=== PATIENT | female | born 1955 | race Caucasian/White ===

== ENCOUNTER 2017-10-02 09:56 | Emergency (ER) | payer MEDICAID, MEDICARE ==
[2017-10-02 09:49] VITALS: BP 126/41
--- NOTE | 2017-10-02 09:56 | EDM.PDOC ---
ED HPI GENERAL MEDICAL PROBLEM - General Stated Complaint: FX ANKLE. IN BY AMB Time Seen by Provider: 10/02/17 09:45 Source of Information: Reports: Patient History Limitations: Reports: No Limitations - History of Present Illness INITIAL COMMENTS - FREE TEXT/NARRATIVE: This 62 yo female patient was brought to the ED by [facility] due to right ankle pain. The patient reports she had a near syncope episode last night at about 2230. The patient reports she has been on the ground since last night. The patient reports that syncope is a side effect of some of her medications. The patient continues to have pain in her right ankle. The patient has an abrasion to her right medial ankle. Onset: Sudden Onset Date: 10/01/17 Onset Time: 22:30 Duration: Constant Location: Reports: Lower Extremity, Right Quality: Reports: Ache, Dull Severity: Moderate Improves with: Reports: Rest Worsens with: Reports: Movement Context: Reports: Other Associated Symptoms: Reports: No Other Symptoms Right Ankle Pain Score (Numeric/FACES): 5 - Related Data Allergies Allergy/AdvReac Type Severity Reaction Status Date / Time cefdinir [From Omnicef] Allergy UNKNOWN Verified 08/22/16 09:42 Home Meds: Home Meds metFORMIN [Glucophage] 1,000 mg PO BID 12/02/13 [History] Calcium Carb & Citrate/Vit D3 [Calcium + D3 ER Tablet] 600 mg PO BID 12/03/14 [ History] Cholecalciferol (Vitamin D3) [Vitamin D3] 2,000 unit PO DAILY 12/03/14 [History] Escitalopram [Lexapro] 20 mg PO DAILY 12/03/14 [History] Furosemide 20 mg PO DAILY 12/03/14 [History] Insulin Aspart [NovoLOG] 4 units SQ ASDIRECTED 12/03/14 [History] Aspirin [Halfprin] 81 mg PO DAILY 08/22/16 [History] Levothyroxine 125 mcg PO DAILY 08/22/16 [History] Pioglitazone [Actos] 30 mg PO DAILY 08/22/16 [History] buPROPion HCl [Wellbutrin Xl] 300 mg PO DAILY 08/22/16 [History] traZODone 50 mg PO BEDTIME 08/22/16 [History] Clopidogrel [Plavix] 75 mg PO DAILY 08/29/16 [History] Insulin Glarg,Human.Rec.Analog [Lantus Solostar] 15 unit SQ BEDTIME 08/29/16 [ History] Lisinopril [Prinivil] 5 mg PO DAILY 08/29/16 [History] Metoprolol Succinate [Toprol XL] 12.5 mg PO DAILY 08/29/16 [History] Pantoprazole Sodium [Protonix] 40 mg PO DAILY 08/29/16 [History] Vit A/C/E AC/Znox/Cupric Oxide [Eye Vitamin-Minerals Tablet] 1 each PO DAILY 06/05 [History] atorvaSTATin [Lipitor] 40 mg PO BEDTIME 08/29/16 [History] Past Medical History Cardiovascular History: Reports: High Cholesterol, Hypertension Other Cardiovascular History: history of syncope Other Respiratory History: "right zay diminished capacity" Gastrointestinal History: Reports: Pancreatitis, Other (See Below) Other Gastrointestinal History: history of pancreatitis [employer] History: Reports: Musculoskeletal History: Reports: Fibromyalgia Psychiatric History: Reports: Anxiety, Depression, Other (See Below) Other Psychiatric History: severe depression Endocrine/Metabolic History: Reports: Diabetes, Type I, Hypothyroidism - Infectious Disease History Infectious Disease History: Reports: Chicken Pox - Past Surgical History HEENT Surgical History: Reports: Other (See Below) Cardiovascular Surgical History: Reports: Coronary Artery Stent GI Surgical History: Reports: Cholecystectomy, Other (See Below) Oncologic Surgical History: Reports: Biopsy of Breast Social & Family History - Family History Family Medical History: Noncontributory Cardiac: Reports: Heart Failure - Tobacco Use Smoking Status *Q: Never Smoker Second Hand Smoke Exposure: No - Caffeine Use Caffeine Use: Reports: None - Alcohol Use Days Per Week of Alcohol Use: 0 - Recreational Drug Use Recreational Drug Use: No ED ROS GENERAL - Review of Systems Review Of Systems: ROS reveals no pertinent complaints other than HPI. - Physical Exam Exam: Not Obtained Exam Limited By: No Limitations General Appearance: Alert, WD/WN, Moderate Distress, Obese Ears: Normal External Exam, Normal Canal, Hearing Grossly Normal, Normal TMs Nose: Normal Inspection, Normal Mucosa, No Blood Throat/Mouth: Normal Inspection, Normal Lips, Normal Teeth, Normal Gums, Normal Oropharynx, Normal Voice, No Airway Compromise Head Exam: Atraumatic, Normocephalic Neck: Normal Inspection, Supple, Non-Tender, Full Range of Motion Respiratory/Chest: No Respiratory Distress, Lungs Clear, Normal Breath Sounds, No Accessory Muscle Use, Chest Non-Tender Cardiovascular: Normal Peripheral Pulses, Regular Rate, Rhythm, No Edema, No Gallop, No JVD, No Murmur, No Rub GI/Abdominal: Normal Bowel Sounds, Soft, Non-Tender, No Organomegaly, No Distention, No Abnormal Bruit, No Mass (Female) Exam: Deferred Rectal (Female) Exam: Deferred Neuro Exam (Abbreviated): Alert, Oriented, CN II-XII Intact, Normal Cognition, Normal Gait, Normal Reflexes, No Motor/Sensory Deficits Back Exam: Normal Inspection, Full Range of Motion, NT Extremities: Other (erythema and abrasion to the right medial ankle with no evidence of disruption of the skin surface. ) Psychiatric: Normal Affect, Normal Mood Skin Exam: Warm, Dry, No Rash EKG INTERPRETATION EKG Date: 10/02/17 Rhythm: NSR [place]: Normal P-Wave: Present QRS: Normal ST-T: Normal QT: Normal Course - Vital Signs Last Recorded V/S: Last Vital Signs Temp 37.3 C 10/02/17 09:39 Pulse 76 10/02/17 09:39 Resp 18 10/02/17 09:39 BP 126/41 L 10/02/17 09:39 Pulse Ox 93 L 10/02/17 09:39 - Orders/Labs/Meds Orders: Active Orders 24 hr Category Date Time Status EKG Documentation Completion [RC] URGENT Care 10/02/17 09:42 Ordered Tibia Fibula Rt [CR] Urgent Exams 10/02/17 09:43 Ordered CBC WITH AUTO DIFF [HEME] Urgent Lab 10/02/17 09:38 Ordered COMPREHENSIVE METABOLIC PN,CMP [CHEM] Urgent Lab 10/02/17 09:38 Ordered TROPONIN I [CHEM] Urgent Lab 10/02/17 09:42 Ordered Departure - Departure Time of Disposition: 11:16 Disposition: DC/Tfer to Acute Hospital 02 Condition: Fair Clinical Impression: Closed fracture of right tibia and fibula Qualifiers: Encounter type: initial encounter Qualified Code(s): S82.201A - Unspecified fracture of shaft of right tibia, initial encounter for closed fracture; S82.401A - Unspecified fracture of shaft of right fibula, initial encounter for closed fracture; S82.401A - Unspecified fracture of shaft of right fibula, initial encounter for closed fracture Dislocation of distal end of right tibia Qualifiers: Encounter type: initial encounter Qualified Code(s): S93.04XA - Dislocation of right ankle joint, initial encounter - Discharge Information Forms: Interfacility Transfer EMTALA Care Plan Goals: Discussed the patient's history, examination and x-ray results with Dr. Duran. Dr. Duran accepted the patient for continued evaluation and further management at [facility] in [place]. The patient will be transported by [facility]. - My Orders Last 24 Hours: My Active Orders 10/02/17 09:38 CBC WITH AUTO DIFF [HEME] Urgent COMPREHENSIVE METABOLIC PN,CMP [CHEM] Urgent 10/02/17 09:42 EKG Documentation Completion [RC] URGENT TROPONIN I [CHEM] Urgent 10/02/17 09:43 Tibia Fibula Rt [CR] Urgent - Assessment/Plan Last 24 Hours: My Active Orders 10/02/17 09:38 CBC WITH AUTO DIFF [HEME] Urgent COMPREHENSIVE METABOLIC PN,CMP [CHEM] Urgent 10/02/17 09:42 EKG Documentation Completion [RC] URGENT TROPONIN I [CHEM] Urgent 10/02/17 09:43 Tibia Fibula Rt [CR] Urgent
[2017-10-02 10:13] LABS: CHLORIDE,CL 92 mmol/L (101-111); SODIUM,NA 131 mmol/L (135-145)
--- NOTE | 2017-10-02 10:32 | CR ---
Clinical history: 62-year-old female injured fall Interpretation: Abnormal. Comminuted tri-"malleolar" fracture right ankle with complete anterior medial dislocation of the dist al tibia relative to the talus. Incidentally noted large heel spur at insertion of Achilles tendon posteriorly on the os calcis. Spiral comminuted fracture distal diaphysis right fibula and although lateral malleolar attachment to the talus remains intact there is evidence of both medial and posterior malleolar fractures distal r ight tibia with associated complete tibiotalar dislocation. No foreign bodies.
--- NOTE | 2017-10-02 11:22 | CR ---
Clinical history: 62-year-old female "trimalleolar fracture and dislocation right ankle" (slipped on ice) postreduction. Interpretation: Satisfactory realignment comminuted distal diaphyseal fracture right fibula. Partial reduction and realignment of the tibiotalar mortise joint (tibia still displaced medially) th is patient with large posterior and medial malleolar fracture fragment avulsion from the distal right tibia. Large heel spur at the insertion Achilles tendon posteriorly on the os calcis. Midfoot intact.
[2017-10-02] MEDS ORDERED: Morphine 2 MG/ML Syringe IVPUSH ONE (11:31)
[2017-10-02] MEDS ORDERED: Ondansetron 4 MG/2 ML SDV IV ONE (11:32)
--- NOTE | 2017-10-03 18:53 | EKG ---
10/02/2017 - MALACHI YOUNGBLOOD I reviewed the EKG and agree with the machine's reading. [facility] /[id number]
== END 2017-10-02 11:48 ==
LOC: DL.ED 11:48
DX: S82.851A Displaced trimalleolar fracture of right lower leg, initial encounter for closed fracture (principal); I10 Essential (primary) hypertension; F41.9 Anxiety disorder, unspecified; F32.9 Major depressive disorder, single episode, unspecified; E11.9 Type 2 diabetes mellitus without complications; E03.9 Hypothyroidism, unspecified; Z95.5 Presence of coronary angioplasty implant and graft; Z79.4 Long term (current) use of insulin; Z79.899 Other long term (current) drug therapy; E78.00 Pure hypercholesterolemia, unspecified; X58.XXXA Exposure to other specified factors, initial encounter; Z90.49 Acquired absence of other specified parts of digestive tract
CPT/HCPCS: 01462; 27750; 36415; 73590; 73600; 80053; 84484; 85025; 93005; 93010; 96374; 96375; 99152; 99284; 99285; J2270; J2405

== ENCOUNTER 2018-04-04 06:56 | Day surgery (SDC) | payer MEDICARE, MEDICAID ==
[~2018-04-04 06:56] MED LIST: Dextrose 5%-0.45% NaCl 1,000 ML IV SCH; Midazolam 1 MG/ML 2 ML SDV ONE; Sodium Chloride 0.9% 10 ML Syringe FLUSH PRN; fentaNYL 100 MCG/2 ML SDV ONE
[2018-04-04] MEDS ORDERED: fentaNYL 100 MCG/2 ML SDV IV ONE ×3 (06:57→08:11)
[2018-04-04] MEDS ORDERED: Midazolam 1 MG/ML 2 ML SDV IV ONE ×7 (06:57→08:34)
--- NOTE | 2018-04-04 11:35 | OR ---
DATE: 04/04/2018 PROCEDURE: Total colonoscopy. INSTRUMENT USED: PCF-H180 AL Olympus video colonoscope. PREMEDICATIONS: Fentanyl 100 mcg intravenous, Versed 4 mg intravenous. Nasal O2 cannula. The procedure was done under pulse oximetry, BP recording, and outside b2b sales. INDICATION: The patient with positive FIT and iron-deficiency anemia. Colonoscopic examination is done for detection of any polypoid lesions and removal. Endoscopic hemostasis therapy if needed. DESCRIPTION OF PROCEDURE: Initial rectal exam was unremarkable. Rigid anoscopy was normal. The colonoscope was passed with ease. There was a large amount of fecal material that had to be aspirated. The colonoscope was passed up to the ileocecal area. Photographs were taken of the cecum showing few diverticula openings without bleeding from them. The exam was a bit prolonged due to the presence of adhesions requiring manipulation to pass through. No stricture. No vascular ectasia. No large isolated ulcerations seen. No evidence of diffuse inflammatory bowel disease in the form of friability, contact bleeding, or ulcerations. No polyp or tumor mass identified. There was some limitation of the study due to the presence of some fecal material that could not be aspirated clear. No bleeding was noted from any of the visualized areas at the completion of examination. Probing the proximal sides of folds and flexures, using adequate distention and clearing up the stool material, withdrawal of the scope was made. Exoln-[id number]-[id number] time over 6 minutes. IMPRESSION: 1. Diverticulosis. 2. Melanosis coli. The patient tolerated the procedure well. [facility] /[id number]
[2018-04-04 13:52] VITALS: BP 133/57
== END 2018-04-04 11:02 | disposition home or self-care (01) ==
LOC: DL.ENDO 06:56
PROVIDERS: ATTEND Internal Medicine Gastroenterology
DX: R19.5 Other fecal abnormalities (principal); D50.9 Iron deficiency anemia, unspecified; K57.30 Diverticulosis of large intestine without perforation or abscess without bleeding; K63.89 Other specified diseases of intestine; I10 Essential (primary) hypertension; I25.10 Atherosclerotic heart disease of native coronary artery without angina pectoris; I87.309 Chronic venous hypertension (idiopathic) without complications of unspecified lower extremity; E03.9 Hypothyroidism, unspecified; E11.9 Type 2 diabetes mellitus without complications; E78.5 Hyperlipidemia, unspecified; F41.1 Generalized anxiety disorder; E66.09 Other obesity due to excess calories; Z68.39 Body mass index [BMI] 39.0-39.9, adult; F32.9 Major depressive disorder, single episode, unspecified; Z88.1 Allergy status to other antibiotic agents; Z79.4 Long term (current) use of insulin; Z79.82 Long term (current) use of aspirin; Z79.899 Other long term (current) drug therapy; Z90.49 Acquired absence of other specified parts of digestive tract
CPT/HCPCS: 45378; J2250; J3010; J7042

== ENCOUNTER 2018-12-04 09:34 | Day surgery (SDC) | payer MEDICARE, MEDICAID ==
[~2018-12-04 09:34] MED LIST changes: +Acetaminophen 325 MG Tab PO PRN; +Cataract Ophth Solution EYELF ONE; -Dextrose 5%-0.45% NaCl 1,000 ML IV SCH; -Midazolam 1 MG/ML 2 ML SDV ONE; +Moxifloxacin 0.5% Ophth Soln 3 ML Bottle EYELF ONE; +Ondansetron 4 MG/2 ML SDV IVPUSH PRN; +Phenylephrine 10% Ophth Soln 5 ML Bot EYELF ONE; +Phenylephrine 10% Ophth Soln 5 ML Bot EYELF PRN; +Povidone-Iodine 5% Sterile Ophth Soln 30 ML Bottle EYELF ONE; +Proparacaine 0.5% Ophth Soln 15 ML Bottle EYELF ONE; +Timolol Maleate 0.5% Ophth Soln 5 ML Bottle EYELF ONE; -fentaNYL 100 MCG/2 ML SDV ONE
[2018-12-04] MEDS ORDERED: Sodium Chloride 0.9% 10 ML Syringe IV ONE (09:35)
[2018-12-04] MEDS ORDERED: Dexamethasone 4 MG/ML SDV IV ONE (09:35)
[2018-12-04] MEDS ORDERED: Midazolam 1 MG/ML 2 ML SDV IV ONE (09:35)
[2018-12-04 09:49] VITALS: BP 130/64
[2018-12-04] MEDS ORDERED: Tetracaine HCl/PF 0.5% 4 ML Bottle EYELF ONE (10:41)
[2018-12-04] MEDS ORDERED: Lidocaine 1% 30 ML SDV ONE (10:41)
[2018-12-04] MEDS ORDERED: Apraclonidine 0.5% Ophth Soln 5 ML Bot EYELF ONE (10:42)
[2018-12-04] MEDS ORDERED: Dexamethasone/Neomycin/Polymyxin B Ophth Oint 3.5 GM Tube EYELF ONE (10:42)
[2018-12-04] MEDS ORDERED: Diclofenac Sodium 0.1% Ophth Soln 5 ML Bottle EYELF ONE (10:42)
[2018-12-04] MEDS ORDERED: Povidone-Iodine 5% Sterile Ophth Soln 30 ML Bottle EYELF ONE (10:42)
[2018-12-04] MEDS ORDERED: Chondroitin Sulfate/Hyaluronate Sodium Ophth Inj 0.75 ML Syringe EYELF ONE (10:43)
[2018-12-04] MEDS ORDERED: Balanced Salt Solution Ophth Irrig 500 ML Bottle IOCULAR ONE (10:43)
[2018-12-04] MEDS ORDERED: Vancomycin 500 MG SDV EYELF ONE (10:43)
--- NOTE | 2018-12-04 17:22 | OR ---
DATE: 12/04/2018 PREOPERATIVE DIAGNOSIS: Visually significant mixed cataract, left eye. POSTOPERATIVE DIAGNOSIS: Visually significant mixed cataract, left eye. PROCEDURE: Extracapsular cataract extraction with intraocular lens implant, left eye. ANESTHESIA: Topical/local MAC. COMPLICATIONS: None. INDICATION: Ms. Resendez was seen in the clinic. She has complained of difficulty reading, difficulty seeing television, difficulty with bright lights. Her examination revealed visually significant mixed cataract. I explained options, offered cataract surgery, and I explained risks, including, but not limited to, infection, retinal detachment, loss of vision, need for additional surgery, amongst others. We discussed implant options. She has requested a monofocal implant targeting mild myopia. She understands that she will likely need spectacle correction for some activities, especially near work. OPERATIVE DESCRIPTION: After informed consent was obtained and the risks, benefits, and alternatives were explained, the patient was brought to the operative suite and topical anesthesia was administered. The patient was then prepped and draped in the sterile fashion and attention was placed on the left eye. A sterile lid speculum was placed into the left eye to allow operative exposure. A full-thickness paracentesis was made in the temporal portion of the operative eye. Preservative-free lidocaine 0.1 mL was injected into the anterior chamber followed by viscoelastic. A full-thickness corneal incision was then made into the anterior chamber. A bent needle cystotome was used to create a small mainor in the anterior capsule. The capsulorrhexis forceps was then used to create a 360-degree curvilinear capsulorrhexis. The nucleus was then removed using a phacoemulsification handpiece and the remaining cortical material was then removed with irrigation and aspiration handpiece. Following removal of the cortical material, the capsular bag was then inspected and noted to be free of any holes or tears. Viscoelastic was then injected into the capsular bag and the intraocular lens was inserted into the capsular bag. The viscoelastic material was then removed from both the anterior and posterior chambers and from behind the IOL. The lens and capsular bag were then reinspected. The IOL was well centered and the capsular bag intact. The wound and paracentesis sites were inspected and hydrated with balanced saline solution. Both were found to be self- sealing. The intraocular pressure was assessed digitally and found to be within normal range. A good red reflex was noted at the completion of the procedure. No complications occurred during the operation. At the completion of the procedure, Maxitrol, Voltaren, and Iopidine drops were placed into the operative eye. A sterile eye shield was placed over the operative eye and the patient was transported to the postoperative recovery area having tolerated the procedure well. Postoperative instructions were given along with a postoperative appointment. The patient was advised to call with any questions or concerns. [facility] /[id number]
== END 2018-12-04 11:52 | disposition home or self-care (01) ==
LOC: DL.SDS 09:34
PROVIDERS: ATTEND Ophthalmology
DX: E11.36 Type 2 diabetes mellitus with diabetic cataract (principal); I10 Essential (primary) hypertension; E03.9 Hypothyroidism, unspecified; E78.5 Hyperlipidemia, unspecified; F41.9 Anxiety disorder, unspecified; F32.9 Major depressive disorder, single episode, unspecified; G47.33 Obstructive sleep apnea (adult) (pediatric); M79.7 Fibromyalgia; E66.01 Morbid (severe) obesity due to excess calories; Z68.41 Body mass index [BMI] 40.0-44.9, adult; Z88.1 Allergy status to other antibiotic agents; Z91.14 Patient's other noncompliance with medication regimen; Z79.4 Long term (current) use of insulin; Z79.82 Long term (current) use of aspirin; Z79.899 Other long term (current) drug therapy
CPT/HCPCS: 00142; 66984; A9270; C1780; J1100; J2001; J2250; J3370

== ENCOUNTER 2018-12-11 09:23 | Day surgery (SDC) | payer MEDICARE, MEDICAID ==
[2018-12-11] MEDS ORDERED: Midazolam 1 MG/ML 2 ML SDV IV ONE (09:24)
[2018-12-11] MEDS ORDERED: Dexamethasone 4 MG/ML SDV IV ONE (09:24)
[2018-12-11] MEDS ORDERED: Phenylephrine 10% Ophth Soln 5 ML Bot EYERT PRN (09:30)
[2018-12-11] MEDS ORDERED: Timolol Maleate 0.5% Ophth Soln 5 ML Bottle EYERT ONE (09:30)
[2018-12-11] MEDS ORDERED: Acetaminophen 325 MG Tab PO PRN (09:30)
[2018-12-11] MEDS ORDERED: Phenylephrine 10% Ophth Soln 5 ML Bot EYERT ONE (09:30)
[2018-12-11] MEDS ORDERED: Sodium Chloride 0.9% 10 ML Syringe FLUSH PRN (09:30)
[2018-12-11] MEDS ORDERED: Ondansetron 4 MG/2 ML SDV IVPUSH PRN (09:30)
[2018-12-11] MEDS ORDERED: Moxifloxacin 0.5% Ophth Soln 3 ML Bottle EYERT ONE (09:30)
[2018-12-11] MEDS ORDERED: Proparacaine 0.5% Ophth Soln 15 ML Bottle EYERT ONE (09:30)
[2018-12-11] MEDS ORDERED: Cataract Ophth Solution EYERT ONE (09:30)
[2018-12-11] MEDS ORDERED: Povidone-Iodine 5% Sterile Ophth Soln 30 ML Bottle EYERT ONE ×2 (09:30→10:34)
[2018-12-11] MEDS ORDERED: Lidocaine 1% 30 ML SDV ONE (10:34)
[2018-12-11] MEDS ORDERED: Tetracaine HCl/PF 0.5% 4 ML Bottle EYERT ONE (10:34)
[2018-12-11] MEDS ORDERED: Dexamethasone/Neomycin/Polymyxin B Ophth Oint 3.5 GM Tube EYERT ONE (10:35)
[2018-12-11] MEDS ORDERED: Apraclonidine 0.5% Ophth Soln 5 ML Bot EYERT ONE (10:35)
[2018-12-11] MEDS ORDERED: Chondroitin Sulfate/Hyaluronate Sodium Ophth Inj 0.75 ML Syringe EYERT ONE (10:35)
[2018-12-11] MEDS ORDERED: Diclofenac Sodium 0.1% Ophth Soln 5 ML Bottle EYERT ONE (10:35)
[2018-12-11] MEDS ORDERED: Vancomycin 500 MG SDV EYERT ONE (10:35)
[2018-12-11] MEDS ORDERED: Balanced Salt Solution Ophth Irrig 500 ML Bottle IOCULAR ONE (10:36)
[2018-12-11 13:45] VITALS: BP 134/47
--- NOTE | 2018-12-11 17:16 | OR ---
DATE: 12/11/2018 PREOPERATIVE DIAGNOSIS: Visually significant mixed cataract, right eye. POSTOPERATIVE DIAGNOSIS: Visually significant mixed cataract, right eye. PROCEDURE: Extracapsular cataract extraction with intraocular lens implant, right eye. ANESTHESIA: Topical/local MAC. COMPLICATIONS: None. INDICATION: Ms. Resendez was seen in the clinic. She has complained of a slow progressive decrease in vision, difficulty reading, difficulty seeing television. Clinical examination reveals visually significant mixed cataract. I explained options and offered cataract surgery and I explained the risks preoperatively including the potential for infection, retinal detachment, loss of vision, need for additional surgery amongst others. We discussed implant options and she has requested a monofocal implant targeting mild myopia. OPERATIVE DESCRIPTION: After informed consent was obtained and the risks, benefits, and alternatives were explained, the patient was brought to the operative suite and topical anesthesia was administered. The patient was then prepped and draped in the sterile fashion and attention was placed on the right eye. A sterile lid speculum was placed into the right eye to allow operative exposure. A full-thickness paracentesis was made in the temporal portion of the operative eye. Preservative-free lidocaine 0.1 mL was injected into the anterior chamber followed by viscoelastic. A full-thickness corneal incision was then made into the anterior chamber. A bent needle cystotome was used to create a small mainor in the anterior capsule. The capsulorrhexis forceps was then used to create a 360-degree curvilinear capsulorrhexis. The nucleus was then removed using a phacoemulsification handpiece and the remaining cortical material was then removed with irrigation and aspiration handpiece. Following removal of the cortical material, the capsular bag was then inspected and noted to be free of any holes or tears. Viscoelastic was then injected into the capsular bag and the intraocular lens was inserted into the capsular bag. The viscoelastic material was then removed from both the anterior and posterior chambers and from behind the IOL. The lens and capsular bag were then reinspected. The IOL was well centered and the capsular bag intact. The wound and paracentesis sites were inspected and hydrated with balanced saline solution. Both were found to be self-sealing. The intraocular pressure was assessed digitally and found to be within normal range. A good red reflex was noted at the completion of the procedure. No complications occurred during the operation. At the completion of the procedure, Maxitrol, Voltaren, and Iopidine drops were placed into the operative eye. A sterile eye shield was placed over the operative eye and the patient was transported to the postoperative recovery area having tolerated the procedure well. Postoperative instructions were given along with a postoperative appointment. The patient was advised to call with any questions or concerns. [facility] /[id number]
== END 2018-12-11 11:47 | disposition home or self-care (01) ==
LOC: DL.SDS 09:23
PROVIDERS: ATTEND Ophthalmology
DX: H26.8 Other specified cataract (principal); I10 Essential (primary) hypertension; E11.9 Type 2 diabetes mellitus without complications; E78.5 Hyperlipidemia, unspecified; E03.9 Hypothyroidism, unspecified; E66.01 Morbid (severe) obesity due to excess calories; Z68.41 Body mass index [BMI] 40.0-44.9, adult; Z79.4 Long term (current) use of insulin; Z79.899 Other long term (current) drug therapy; Z91.128 Patient's intentional underdosing of medication regimen for other reason; Z79.82 Long term (current) use of aspirin; Z88.1 Allergy status to other antibiotic agents
CPT/HCPCS: 00142; A9270-GY; C1780; J1100; J2001; J2250; J3370

== ENCOUNTER 2025-03-03 21:04 | Emergency (ER) | payer MEDICARE ==
[2025-03-03 23:03] VITALS: BP 151/101; PULSE 59
== END 2025-03-03 23:28 | disposition home or self-care (01) ==
LOC: DL.ED 21:04
DX: S02.32XA Fracture of orbital floor, left side, initial encounter for closed fracture (principal); I25.10 Atherosclerotic heart disease of native coronary artery without angina pectoris; E78.00 Pure hypercholesterolemia, unspecified; I10 Essential (primary) hypertension; I25.2 Old myocardial infarction; E11.9 Type 2 diabetes mellitus without complications; E03.9 Hypothyroidism, unspecified; Z88.1 Allergy status to other antibiotic agents; Z79.4 Long term (current) use of insulin; Z79.899 Other long term (current) drug therapy; Z79.84 Long term (current) use of oral hypoglycemic drugs; W01.198A Fall on same level from slipping, tripping and stumbling with subsequent striking against other object, initial encounter; Y93.89 Activity, other specified
CPT/HCPCS: 70450; 72125; 99284

== ENCOUNTER 2025-07-26 15:18 | Emergency (ER) | payer MEDICARE ==
[2025-07-26 16:23] VITALS: BP 145/103; PULSE 67
== END 2025-07-26 16:14 | disposition home or self-care (01) ==
LOC: DL.ED 15:18
DX: L02.212 Cutaneous abscess of back [any part, except buttock and flank] (principal); E11.9 Type 2 diabetes mellitus without complications; E66.9 Obesity, unspecified; E03.9 Hypothyroidism, unspecified; E78.00 Pure hypercholesterolemia, unspecified; I10 Essential (primary) hypertension; Z88.1 Allergy status to other antibiotic agents; Z79.4 Long term (current) use of insulin; Z79.899 Other long term (current) drug therapy; Z79.890 Hormone replacement therapy; Z79.84 Long term (current) use of oral hypoglycemic drugs; Z68.41 Body mass index [BMI] 40.0-44.9, adult
CPT/HCPCS: 10060; 87070; 99283; A9270